=== PATIENT | male | born 1955 | race Caucasian/White ===

== ENCOUNTER 2022-06-18 05:49 | Emergency (ER) | payer OTHER ==
[~2022-06-18] VITALS: Ht 180.3 cm; Wt 117.9 kg
[2022-06-18 06:01] VITALS: BP 139/98
--- NOTE | 2022-06-18 06:10 | NUR ---
Patient taken to bed 12.
--- NOTE | 2022-06-18 06:12 | NUR ---
Dr. Rizo examining patient.
--- NOTE | 2022-06-18 06:21 | NUR ---
Clean wound with NSS.
[2022-06-18 06:32] VITALS: BP 139/98
--- NOTE | 2022-06-18 06:32 | NUR ---
Patient discharged with v/s stable. Written and verbal after care instructions given and explained. Patient verbalized understanding. Ambulatory with steady gait. All questions addressed prior to discharge. Advised to follow up with PMD.
== END 2022-06-18 06:32 | disposition home or self-care (01) ==
LOC: MED 05:49
DX: S81.812A Laceration without foreign body, left lower leg, initial encounter (principal); Z98.890 Other specified postprocedural states; X58.XXXA Exposure to other specified factors, initial encounter; Y93.89 Activity, other specified; Y92.89 Other specified places as the place of occurrence of the external cause; Y99.8 Other external cause status
CPT/HCPCS: 99281